=== PATIENT | female | born 1945 | race Caucasian/White ===

== ENCOUNTER 2024-08-28 17:54 | Inpatient (IN) | payer MEDICARE ==
[~2024-08-28] VITALS: Ht 167.6 cm; Wt 89.6 kg
[2024-08-28] VITALS (17 sets, daily range): BP systolic 123–198; BP diastolic 55–143
[2024-08-28] MEDS ORDERED: Iopamidol 370 (Isovue) 76% 100 ML SDV IV ONE ×2 (18:00)
[2024-08-28 18:22] LABS: BASO% 0.6 % (0-3); EOS% 1.2 % (0-8); HEMATOCRIT 44.5 % (37.0-47.0); HEMOGLOBIN 14.3 g/dl (12.0-16.0); IMMATURE GRANULOCYTES 0.2 % (0.0-5.0); LYMPH% 22.1 % (15-41); MEAN CELL VOLUME 94.1 fL CALC (80.0-100.0); MEAN CORPUSCULAR HGB 30.2 pG CALC (26.0-32.0); MEAN CORPUSCULAR HGB CONC 32.1 g/dL CAL (32.0-36.0); MONO% 7.3 % (2-13); NEUT# 5.82 thou/uL (2.00-7.15); NEUT% 68.6 % (42-76); RED BLOOD COUNT 4.73 mill/uL (4.20-5.60); RED CELL DISTRI WIDTH 12.9 % (11.5-15.5)
[2024-08-28] MEDS ORDERED: CLOPIDOGREL BISULFATE 75 MG/TAB TAB PO ONE (18:25)
[2024-08-28] MEDS ORDERED: ASPIRIN 325 MG/TAB PO ONE (18:25)
[2024-08-28] MEDS ORDERED: OMEPRAZOLE DR40 MG PO (18:29)
[2024-08-28] MEDS ORDERED: BENADRYL25 M1 PO (18:30)
[2024-08-28 18:38] LABS: ALBUMIN 4.4 g/dL (3.2-5.0); ALKALINE PHOSPHATASE 77 u/l (38-126); ANION GAP 16 (6-22 (CALC)); BILIRUBIN, TOTAL 0.7 mg/dL (0.02-1.3); BUN 19 mg/dL (8-23); BUN/CREATININE RATIO 19 (12-20 (CALC)); CALCULATED LDLCHOLESTEROL 86 mg/dL (62-129 (CALC)); CARBON DIOXIDE 25 mmol/l (22-30); CHLORIDE 103 mmol/l (95-108); CHOLESTEROL HDL RATIO 2.4 (<4.4 (CALC)); ESTIMATED GFR 58 ML/MIN (>=90 (CALC)); HDL CHOLESTEROL 74 mg/dL (39.0-59.0); POTASSIUM 4.3 mmol/l (3.5-5.1); PROTHROMBIN TIME 10.4 SECONDS (9.0-12.5); SGOT/AST 34 u/l (9-36); SODIUM 139 mmol/l (137-146); TOTAL CHOLESTEROL 176 mg/dl (0-199); TOTAL PROTEIN 7.9 g/dL (6.3-8.2); TOTAL TRIGLYCERIDES 78 mg/dl (0-149); VLDL CHOLESTROL 16 mg/dl (0-48 (CALC))
[2024-08-28 21:22] LABS: URINE BILIRUBIN - DIPSTICK Negative (NEGATIVE); URINE BLOOD DIPSTICK Trace-intact (NEGATIVE); URINE GLUCOSE - DIPSTICK Negative (NEGATIVE); URINE KETONE Negative (NEGATIVE); URINE NITRITE - DIPSTICK Negative (Negative); URINE PROTEIN - DIPSTICK Negative (NEG-TRACE); URINE SPECIFIC GRAVITY 1.015; URINE UROBILINOGEN - DIPSTICK 0.2 E.U./dL (0.2)
[2024-08-28 21:25] LABS: URINE COLOR Yellow; URINE LEUK ESTERASE Small (NEGATIVE)
[2024-08-28 21:33] LABS: URINE SQUAMOUS EPITHELIAL CELL FEW EPI/hpf (0-FEW)
[2024-08-28] MEDS ORDERED: ACETAMINOPHEN 325 MG/TAB PO PRN (22:10)
[2024-08-28] MEDS ORDERED: MAGNESIUM HYDROXIDE 30 ML UDC PO PRN (22:10)
[2024-08-28] MEDS ORDERED: SODIUM CHLORIDE 0.9% 1,000 ML IV PRN ×2 (22:10→22:30)
[2024-08-28] MEDS ORDERED: DEXTROSE 250 ML IV PRN (22:30)
[2024-08-28] MEDS ORDERED: hydrALAZINE HCL 20 MG/ML VIAL(1 ML) IV PRN (22:35)
[2024-08-29] VITALS (7 sets, daily range): BP systolic 155–183; BP diastolic 56–83
[2024-08-29 05:32] LABS: BASO% 0.5 % (0-3); EOS% 0.7 % (0-8); HEMATOCRIT 40.9 % (37.0-47.0); HEMOGLOBIN 13.5 g/dl (12.0-16.0); IMMATURE GRANULOCYTES 0.1 % (0.0-5.0); LYMPH% 24.9 % (15-41); MEAN CELL VOLUME 91.5 fL CALC (80.0-100.0); MEAN CORPUSCULAR HGB 30.2 pG CALC (26.0-32.0); MONO% 7.3 % (2-13); NEUT# 5.52 thou/uL (2.00-7.15); NEUT% 66.5 % (42-76); RED BLOOD COUNT 4.47 mill/uL (4.20-5.60); RED CELL DISTRI WIDTH 13.1 % (11.5-15.5)
[2024-08-29 05:33] LABS: ALBUMIN 3.8 g/dL (3.2-5.0); BILIRUBIN, TOTAL 0.6 mg/dL (0.02-1.3); CREATININE 0.8 mg/dL (0.5-1.0); MAGNESIUM 1.9 mg/dL (1.6-2.3); POTASSIUM 3.8 mmol/l (3.5-5.1); TOTAL PROTEIN 6.8 g/dL (6.3-8.2)
[2024-08-29] MEDS ORDERED: CLOPIDOGREL BISULFATE 75 MG/TAB TAB PO SCH (09:00)
[2024-08-29] MEDS ORDERED: ASPIRIN 81 MG/TAB PO SCH (09:00)
[2024-08-29] MEDS ORDERED: PANTOPRAZOLE SODIUM Sesquihydr 40 MG/TAB PO SCH (09:00)
[2024-08-29] MEDS ORDERED: FLUTICASONE PROPIONATE (Nasal) 50MCG/SPRAY INH SCH (17:34)
[2024-08-29] MEDS ORDERED: OXYMETAZOLINE HCL 15 ML/BTL PRN (17:35)
[2024-08-29] MEDS ORDERED: ATORVASTATIN CALCIUM 40 MG/TAB PO SCH (21:00)
[2024-08-29] MEDS ORDERED: ENOXAPARIN SODIUM 40 MG/0.4 ML SYR SC SCH (21:00)
[2024-08-30] VITALS (8 sets, daily range): BP systolic 121–181; BP diastolic 50–73
[2024-08-30 05:39] LABS: BASO% 0.4 % (0-3); EOS% 1.1 % (0-8); HEMATOCRIT 39.8 % (37.0-47.0); HEMOGLOBIN 13.3 g/dl (12.0-16.0); IMMATURE GRANULOCYTES 0.1 % (0.0-5.0); LYMPH% 31.4 % (15-41); MEAN CELL VOLUME 91.7 fL CALC (80.0-100.0); MEAN CORPUSCULAR HGB 30.6 pG CALC (26.0-32.0); MEAN CORPUSCULAR HGB CONC 33.4 g/dL CAL (32.0-36.0); NEUT# 4.27 thou/uL (2.00-7.15); RED BLOOD COUNT 4.34 mill/uL (4.20-5.60)
[2024-08-30 05:50] LABS: ALBUMIN 3.8 g/dL (3.2-5.0); BILIRUBIN, TOTAL 0.6 mg/dL (0.02-1.3); C-REACTIVE PROTEIN 0.7 mg/dL (0-0.9); CREATININE 0.8 mg/dL (0.5-1.0); POTASSIUM 3.5 mmol/l (3.5-5.1); TOTAL PROTEIN 6.7 g/dL (6.3-8.2)
[2024-08-30] MEDS ORDERED: LISINOPRIL 10 MG/TAB PO SCH (09:00)
[2024-08-30] MEDS ORDERED: Zaleplon 5 MG/CAP PO PRN (11:10)
[2024-08-30 21:44] LABS: URINE BILIRUBIN - DIPSTICK Negative (NEGATIVE); URINE BLOOD DIPSTICK Moderate (NEGATIVE); URINE COLOR Yellow; URINE GLUCOSE - DIPSTICK Negative (NEGATIVE); URINE KETONE 15 mg/dL (NEGATIVE); URINE LEUK ESTERASE Trace (NEGATIVE); URINE NITRITE - DIPSTICK Negative (Negative); URINE PH 6.5 (4.5-8.0); URINE PROTEIN - DIPSTICK Negative (NEG-TRACE); URINE UROBILINOGEN - DIPSTICK 0.2 E.U./dL (0.2)
[2024-08-30 21:52] LABS: URINE SQUAMOUS EPITHELIAL CELL FEW EPI/hpf (0-FEW)
[2024-08-30 21:53] LABS: URINE BACTERIA MODERATE hpf; URINE TRANSITIONAL EPI. CELLS FEW hpf
[2024-08-31 04:08] VITALS: BP 154/53
[2024-08-31 05:35] LABS: BASO% 0.7 % (0-3); EOS% 1.5 % (0-8); HEMATOCRIT 41.7 % (37.0-47.0); HEMOGLOBIN 13.5 g/dl (12.0-16.0); IMMATURE GRANULOCYTES 0.6 % (0.0-5.0); LYMPH% 29.3 % (15-41); MEAN CELL VOLUME 92.3 fL CALC (80.0-100.0); MEAN CORPUSCULAR HGB 29.9 pG CALC (26.0-32.0); MEAN CORPUSCULAR HGB CONC 32.4 g/dL CAL (32.0-36.0); MONO% 8.9 % (2-13); NEUT# 4.22 thou/uL (2.00-7.15); RED BLOOD COUNT 4.52 mill/uL (4.20-5.60)
[2024-08-31 05:57] LABS: ALBUMIN 3.8 g/dL (3.2-5.0); BILIRUBIN, TOTAL 0.4 mg/dL (0.02-1.3); CREATININE 0.9 mg/dL (0.5-1.0); POTASSIUM 3.6 mmol/l (3.5-5.1); TOTAL PROTEIN 6.6 g/dL (6.3-8.2)
[2024-08-31 06:58] VITALS: BP 151/70
[2024-08-31 14:53] VITALS: BP 135/61
[2024-08-31 18:26] VITALS: BP 156/67
[2024-08-31 23:05] VITALS: BP 145/52
[2024-09-01 03:49] VITALS: BP 160/69
[2024-09-01 05:10] LABS: BASO% 0.9 % (0-3); EOS% 1.8 % (0-8); HEMATOCRIT 40.9 % (37.0-47.0); HEMOGLOBIN 13.7 g/dl (12.0-16.0); IMMATURE GRANULOCYTES 0.1 % (0.0-5.0); LYMPH% 28.8 % (15-41); MEAN CELL VOLUME 93.2 fL CALC (80.0-100.0); MEAN CORPUSCULAR HGB 31.2 pG CALC (26.0-32.0); MEAN CORPUSCULAR HGB CONC 33.5 g/dL CAL (32.0-36.0); MONO% 8.7 % (2-13); NEUT# 4.07 thou/uL (2.00-7.15); NEUT% 59.7 % (42-76); RED BLOOD COUNT 4.39 mill/uL (4.20-5.60)
[2024-09-01 05:31] LABS: ALBUMIN 3.8 g/dL (3.2-5.0); POTASSIUM 3.4 mmol/l (3.5-5.1); TOTAL PROTEIN 6.5 g/dL (6.3-8.2)
[2024-09-01 05:36] LABS: CREATININE 0.9 mg/dL (0.5-1.0)
[2024-09-01 05:45] LABS: BILIRUBIN, TOTAL 0.6 mg/dL (0.02-1.3)
[2024-09-01 07:14] VITALS: BP 149/70
[2024-09-01] MEDS ORDERED: POTASSIUM CHLORIDE 20 MEQ/TAB PO SCH (08:30)
[2024-09-01] MEDS ORDERED: LISINOPRIL 20 MG/TAB PO SCH (09:00)
[2024-09-01] MEDS ORDERED: PLAVIX75 MG PO (09:29)
[2024-09-01] MEDS ORDERED: ATORVASTATIN CA40 MG PO (09:29)
[2024-09-01] MEDS ORDERED: LISINOPRIL20 M1 PO (09:29)
[2024-09-01] MEDS ORDERED: ASPIRIN81 MG PO (09:29)
[2024-09-01 10:43] VITALS: BP 137/73
== END 2024-09-01 13:22 | DRG 65 ==
LOC: ED 17:54 → ED-I 22:00 → ED 22:04 → MS2 22:05
PROVIDERS: Family Medicine; Nurse Practitioner Family; ADMIT Student in an Organized Health Care Education/Training Program; ATTEND Student in an Organized Health Care Education/Training Program
DX: I63.81 Other cerebral infarction due to occlusion or stenosis of small artery (principal); G81.94 Hemiplegia, unspecified affecting left nondominant side; N30.00 Acute cystitis without hematuria; R47.81 Slurred speech; R20.0 Anesthesia of skin; R29.810 Facial weakness; R29.705 NIHSS score 5; I65.23 Occlusion and stenosis of bilateral carotid arteries; I10 Essential (primary) hypertension; E78.5 Hyperlipidemia, unspecified; Z87.891 Personal history of nicotine dependence
CPT/HCPCS: J1650; Q9967